=== PATIENT | female | born 1960 | race African-American/Black ===

== ENCOUNTER 2016-08-10 19:55 | Emergency (ER) | payer OTHER ==
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
--- NOTE | 2016-08-11 10:54 | Diagnostic Imaging Report ---
Left middle finger (3 views) HISTORY: Pain, trauma No acute bony abnormalities. No fractures. Joint spaces appear normal. IMPRESSION: No acute abnormalities In the presence of recent trauma and persistent symptoms, a repeat radiograph in 5-7 days may be helpful for detection of a subtle or occult fracture.
== END 2016-08-10 21:15 | disposition home or self-care (01) ==
LOC: ER 19:55
DX: S60.032A Contusion of left middle finger without damage to nail, initial encounter (principal); R03.0 Elevated blood-pressure reading, without diagnosis of hypertension; X58.XXXA Exposure to other specified factors, initial encounter; Y93.89 Activity, other specified; Y92.89 Other specified places as the place of occurrence of the external cause; Y99.8 Other external cause status
CPT/HCPCS: 73140-TC-F2; Z7502